=== PATIENT | female | born 1990 | race Caucasian/White ===

== ENCOUNTER → 2019-10-06 11:01 | Outpatient (CLI) | payer OTHER, SELFPAY ==
[2019-10-06 11:13] LABS: Bacteria Urine None Seen; RBC Urine None Seen (0-5/HPF); WBC Urine None Seen (0-5/HPF)
[2019-10-06 12:06] LABS: Appearance Urine UA CLEAR; Bilirubin Urine UA NEGATIVE (NEGATIVE); Color Urine UA YELLOW; Glucose Urine UA NEGATIVE (Negative); Ketones Urine UA TRACE (NEGATIVE); Leukocyte Esterase Urine UA NEGATIVE (NEGATIVE); Nitrite Urine UA NEGATIVE (Negative); Occult Blood Urine UA NEGATIVE (Negative); Protein Urine UA NEGATIVE (Negative); Urobilinogen Urine UA 0.2 E.U./dL (0.2)
[2019-10-06 12:09] LABS: Culture Indicated Urine Cult Not Indicated; Urine Comments Microscopic Normal
== END ==
PROVIDERS: Family Provider Specialist; PCP Family Medicine; Referring Provider Specialist; Visit Provider Specialist
DX: O26.859 Spotting complicating pregnancy, unspecified trimester (principal)
CPT/HCPCS: 36415; 81001; 84702

== ENCOUNTER → 2019-10-30 16:21 | Outpatient (CLI) | payer OTHER, SELFPAY ==
[2019-10-30 18:12] LABS: Appearance Urine UA CLEAR; Bilirubin Urine UA NEGATIVE (NEGATIVE); Color Urine UA YELLOW; Glucose Urine UA NEGATIVE (Negative); Ketones Urine UA NEGATIVE (NEGATIVE); Leukocyte Esterase Urine UA NEGATIVE (NEGATIVE); Nitrite Urine UA NEGATIVE (Negative); Occult Blood Urine UA NEGATIVE (Negative); Protein Urine UA NEGATIVE (Negative); Urobilinogen Urine UA 0.2 E.U./dL (0.2)
[2019-10-30 18:17] LABS: pH Urine UA 5.5 (4.5-8.0)
[2019-10-30 18:19] LABS: Add Manual Diff / Slide Review NO; Basophils Absolute Auto 100 /uL (0-100); Basophils Percent Auto 0.6 % (0-2); Eosinophils Absolute Auto 100 /uL (0-450); Eosinophils Percent Auto 1.7 % (2-4); Hemoglobin 13.5 g/dL (12.0-16.0); Lymphocytes Absolute Auto 2100 /uL (1100-4500); Lymphocytes Percent Auto 23.9 % (25-40); Mean Corpuscular HGB Conc 34.6 % (30-36); Mean Corpuscular Hemoglobin 31.5 PG (26-34); Mean Corpuscular Volume 91.2 fL (80-100); Monocytes Absolute Auto 500 /uL (0-900); Monocytes Percent Auto 5.4 % (3-14); Neutrophils Absolute Auto 5900 /uL (1500-7000); Neutrophils Percent Auto 68.4 % (50-75); Platelet Count 221 X10^3/uL (150-400); Red Blood Cell Count 4.27 X10^6/uL (4.0-5.2); Red Cell Distribution Width 12.3 % (11.6-14.8); White Blood Cell Count 8.7 X10^3/uL (4.5-11.0)
[2019-10-30 19:55] LABS: Hepatitis B Surface Antigen NEGATIVE s/c (NEGATIVE)
[2019-10-30 19:56] LABS: Rubella Antibody IgG 18.1 IU/mL (>15)
[2019-10-30 20:10] LABS: HIV 1 & 2 Ab/Ag 4th Gen Combo NEGATIVE (NEGATIVE); Hep C Virus Ab w/Reflex Quant NEGATIVE s/c (NEGATIVE)
[2019-10-30 22:04] LABS: Urine N gonorrhoeae NOT DETECTED
[2019-10-30 22:22] LABS: Urine Chlamydia NOT DETECTED
[2019-11-01 04:12] LABS: RPR Screen Non Reactive (Non Reactive)
[2019-11-01 07:09] LABS: Varicella IgG Antibody 2379 index (Immune >165)
== END ==
PROVIDERS: Family Provider Specialist; PCP Family Medicine; Referring Provider Specialist; Visit Provider Specialist
DX: Z34.81 Encounter for supervision of other normal pregnancy, first trimester (principal); Z3A.01 Less than 8 weeks gestation of pregnancy
CPT/HCPCS: 36415; 80055; 81003; 86787; 86803; 86850; 86900; 86901; 87086; 87389; 87491; 87591

== ENCOUNTER → 2019-11-21 08:35 | Outpatient (CLI) | payer OTHER, SELFPAY ==
[2019-11-22 23:06] LABS: COVID19 Sendout Not Detected (Not Detected)
== END ==
PROVIDERS: Family Provider Specialist; PCP Family Medicine; Visit Provider Physician Assistant
DX: Z11.59 Encounter for screening for other viral diseases (principal)
CPT/HCPCS: 87635

== ENCOUNTER → 2020-01-12 10:21 | Outpatient (CLI) | payer OTHER, SELFPAY ==
[2020-01-15 20:09] LABS: AFP, Serum 42.2 ng/mL (.); Estriol, Free 1.43 ng/mL (.); Inhibin A, Dimeric 89.25 pg/mL (.); Inhibin A, MoM 0.67 (.); Maternal Ethnicity Caucasian (.); Maternal Weight 217 lbs (.); Number of Fetuses No (.); OSBR Risk 1 IN 7137 (.); Results Report (.); Test Results *Screen Negative* (.); hCG, MoM 0.81 (.); hCG, Serum 17564 mIU/mL (.)
== END ==
PROVIDERS: Family Provider Specialist; PCP Family Medicine; Referring Provider Specialist; Visit Provider Specialist
DX: Z34.82 Encounter for supervision of other normal pregnancy, second trimester (principal); Z3A.18 18 weeks gestation of pregnancy
CPT/HCPCS: 36415; 82105; 82677; 84702; 86336

== ENCOUNTER → 2020-01-26 07:30 | Outpatient (CLI) | payer OTHER, SELFPAY ==
--- NOTE | 2020-01-26 07:31 | DI.US.S_ITS ---
PROCEDURE: US OB >= 14 WEEKS FETUS INDICATIONS: ANATOMY OUTSIDE/PRIOR DATING DATA: Last menstrual period (LMP): 09/06/2019. LMP-based estimated date of delivery (KALIE): 06/12/2020. First dating scan (date and location): 10/30/2019. Estimated date of delivery (KALIE) from first dating scan: 06/10/2020. TECHNIQUE: Real-time scanning was performed of the fetus, with image documentation and biometric measurements. Endovaginal scanning: Not performed. COMPARISON: [facility], , OB >= 14 WEEKS FETUS, 01/12/2020, 10:07. FINDINGS: General: A single living intrauterine gestation is present. Presentation: Breech. Placenta: Placental position is posterior, without previa. Amniotic fluid index: 15.1 cm, normal range is 5-24 cm. heart rate: 147 beats per minute. Maternal cervical canal: 3 cm long. Normal lower limit is 2.5 cm. biometrics: Biparietal diameter: 4.9 cm, 20 weeks 6 days Head circumference: 18.7 cm, 21 weeks 0 days Abdominal circumference: 15.5 cm, 20 weeks 4 days Femur length: 3.4 cm, 20 weeks 4 days Estimated gestational age from initial scan: 20 weeks 4 days Composite gestational age from present scan: 20 weeks 5 days Estimated weight and percentile: 369 g, 50 percentile Measurement variability for biometric dating: +/- 7 days from 14 weeks to 15 weeks 6 days gestation, +/- 10 days from 16 weeks to 21 weeks 6 days gestation, +/- 2 weeks from 22 weeks to 27 weeks 6 days gestation, +/- 3 weeks for 28 weeks gestation or later. weight reference: 4500 g or EFW >90/95% is considered macrosomia or large for gestational age. EFW <10% is small for gestational age. EFW 5% or less is considered intra-uterine growth restriction. Anatomic survey: Neuro: Ventricles are non-dilated at less than 10 mm. Cisterna magna is normal at 3-11 mm. Cerebellum is normal in size and morphology. Nuchal skin fold: Normal at less than 6 mm between 14-21 weeks gestational age. Face: Nose and lips, facial profile are normal. Spine: No evidence for spina bifida. Heart: 4-chambered heart is present, with normal ventricular outflow tracts. Diaphragm: Diaphragm is intact. Stomach: Left-sided stomach is present. Kidneys: No hydronephrosis. Normal is less than 5 mm in 2nd trimester, less than 7 mm in 3rd trimester. Cord: 3-vessel cord has orthotopic insertion. Bladder: Normal in size. Extremities: All 4 extremities identified. IMPRESSION: 1. [place] living intrauterine at 20 weeks 5 days based on today's ultrasound. This is concordant with the prior ultrasound dating. There is expected interval growth. 2. Normal placenta and amniotic fluid. 3. Normal and complete anatomic survey. Dictated by: Miller Jin M.D. on 01/26/2020 at 9:13 Approved by: Miller Jin M.D. on 01/26/2020 at 9:17
== END ==
PROVIDERS: Family Provider Specialist; PCP Family Medicine; Referring Provider Family Medicine; Visit Provider Specialist
DX: Z34.82 Encounter for supervision of other normal pregnancy, second trimester (principal); Z3A.20 20 weeks gestation of pregnancy
CPT/HCPCS: 76811

== ENCOUNTER 2020-03-01 17:08 | Outpatient (CLI) | payer OTHER, SELFPAY ==
--- NOTE | 2020-03-01 17:45 | P.TNLD_ITS ---
Visit Information Visit Information Date of evaluation: 03/01/20 Primary OB Provider: Terese Joseph Reason for Evaluation: Yes rupture of membranes [facility] Medical History (Updated 03/01/20 @ 17:48 by Terese Joseph MD) ASCUS (atypical squamous cells of undetermined significance) on gynecologic Papanicolaou smear complicating , antepartum (~01/27/19) Fx wrist bleeding (~02/16/17) Rubella non-immune status, antepartum (~2016) UTI (urinary tract infection) Surgical History (Updated 10/28/19 @ 13:34 by Tia Miller, RN) History of open reduction and internal fixation (ORIF) procedure Status post delivery (02/16/17) [place] teeth extracted Family History (Updated 10/28/19 @ 13:05 by Tia Miller, RN) Mother Thyroid condition Hypothyroid Father No problems noted. 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: employed current occupational exposures/hazards: No 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 special rosanne needs: No Smoking Status: Former smoker (Social/Occasional in College) Tobacco: How many years used: 4 second hand exposure: No alcohol intake: former (pre- : occasional on weekends ) substance use type: does not use Evaluation Evaluation Baseline heart rate: 150 Variability: Moderate (11-25) monitor accelerations: Present monitor decelerations: Absent Contraction Frequency (minutes): 0 Category of Tracing: Reactive Non-invasive Membranes Rupture Test: negative Diagnosis, Plan/Disposition Final Diagnosis (1) Vaginal discharge during in second trimester: Status: Acute Plan/Disposition Plan: negative test for rupture of membranes. reassurance. precautions reviewed OB Disposition: home
== END 2020-03-01 17:50 | disposition home or self-care (01) ==
LOC: LABOR 17:12 → OB 03-02 09:38
PROVIDERS: Family Provider Specialist; PCP Family Medicine; Referring Provider Specialist; Visit Provider Specialist
DX: O26.892 Other specified pregnancy related conditions, second trimester (principal); N89.8 Other specified noninflammatory disorders of vagina; W18.30XA Fall on same level, unspecified, initial encounter; Z3A.25 25 weeks gestation of pregnancy
CPT/HCPCS: 59025; 84112; G0378; G0379

== ENCOUNTER → 2020-03-05 09:13 | Outpatient (CLI) | payer OTHER, SELFPAY ==
[2020-03-05 11:16] LABS: Hematocrit 35.5 % (36-46); Hemoglobin 12.5 g/dL (12.0-16.0)
[2020-03-05 11:30] LABS: GTT (PREG) 1 Hour PP 50gm Dose 99 mg/dL (76-139)
== END ==
PROVIDERS: Family Provider Specialist; PCP Family Medicine; Referring Provider Specialist; Visit Provider Specialist
DX: Z34.82 Encounter for supervision of other normal pregnancy, second trimester (principal); Z3A.22 22 weeks gestation of pregnancy
CPT/HCPCS: 36415; 82950; 85014; 85018

== ENCOUNTER 2020-05-13 16:13 | Outpatient (CLI) | payer OTHER, SELFPAY ==
--- NOTE | 2020-05-13 17:19 | PM.OBTRLD ---
Visit Information Visit Information Date of evaluation: 05/13/20 Primary OB Provider: Terese Joseph On-call OB Provider: Nimo Ritter Reason for Evaluation: Yes non-stress test non-stress test reason: hypertension/pre-eclampsia Comments/Additional reasons for admission: Patient was sent by OB office after she called with elevated blood pressures at home and the sensation that her heart was racing. Denies contractions, leaking or bleeding and reports good FM. Denies lightheadedness, dizziness, chest pain, SOB, VIEIRA, vision changes, RUQ abdominal pain or edema. Vital Signs Vital Signs: T 36.2 BP 122/80 P 123 BP 123/78 P 112 Pulse came down to high 90s while talking with patient. REPLACED BY [facility] Medical History (Updated 05/13/20 @ 17:54 by Nimo Ritter DO) ASCUS (atypical squamous cells of undetermined significance) on gynecologic Papanicolaou smear complicating , antepartum (~01/27/19) Fx wrist bleeding (~02/16/17) Rubella non-immune status, antepartum (~2016) UTI (urinary tract infection) Surgical History (Updated 10/28/19 @ 13:34 by Tia Miller, RN) History of open reduction and internal fixation (ORIF) procedure Status post delivery (02/16/17) [place] teeth extracted Family History (Updated 10/28/19 @ 13:05 by Tia Miller, RN) Mother Thyroid condition Hypothyroid Father No problems noted. Grandfather Heart disease Arrhythmia Pacemaker Grandmother Heart disease Anemia Cancer Colon cancer DVT (deep vein thrombosis) in COPD (chronic obstructive pulmonary disease) Congestive heart failure Grandfather Myocardial infarct S/P coronary artery stent placement Grandmother COPD (chronic obstructive pulmonary disease) Heavy smoker Sister No known health problems Social History marital status: number of children: 1 household members: spouse, family and children lives independently: Yes pets and animals: Yes (X 2 dogs; X 3 cats and 15 ducks : aware) education level: college occupational status: employed current occupational exposures/hazards: No 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 Blood pressure was normal x2 in the center. NST reactive. No contractions noted on monitor. Heart rate was anywhere from the high 90s up to the 120s and would decrease spontaneously. Patient denied shortness of breath, lightheadedness, dizziness or chest pain associated with palpitations. Advised patient to increase her fluids and call or return to the center should she note any new symptoms associated with brief episodes of tachycardia. Patient is safe for discharge home with follow-up in the office as scheduled. OB Disposition: home
== END 2020-05-13 18:00 | disposition home or self-care (01) ==
LOC: OB 05-14 09:24
PROVIDERS: Family Provider Specialist; PCP Specialist; Referring Provider Specialist; Visit Provider Specialist
DX: O26.893 Other specified pregnancy related conditions, third trimester (principal); R00.2 Palpitations; Z3A.35 35 weeks gestation of pregnancy; R00.0 Tachycardia, unspecified
CPT/HCPCS: 59025; 59050; G0378; G0379

== ENCOUNTER → 2020-05-19 09:00 | Outpatient (CLI) | payer OTHER, SELFPAY ==
[2020-05-20 13:01] LABS: Strep Grp B PCR NEG for Grp B Strep
== END ==
PROVIDERS: Family Provider Specialist; PCP Specialist; Visit Provider Specialist
DX: Z34.83 Encounter for supervision of other normal pregnancy, third trimester (principal); Z3A.36 36 weeks gestation of pregnancy
CPT/HCPCS: 87653

== ENCOUNTER 2020-06-08 05:53 | Inpatient (IN) | payer OTHER, SELFPAY ==
[2020-06-08] VITALS (9 sets, daily range): BP systolic 101–128; BP diastolic 41–81; PULSE 71–87; RESP 10–17; TEMP 36.1–36.7; O2SAT 97–99
--- NOTE | 2020-06-08 07:05 | PM.OBHP.1 ---
OB HPI Date/Time Date of admission: 06/08/20 Date Patient Seen: 06/08/20 Time Patient Seen: 07:06 History of Present Condition Chief complaint: INPT : 2 Para: 1 Estimated Date of Delivery: 06/12/20 Estimated Gestational Age (weeks): 39 Narrative: Amanda Pollock is a 29 year old female Indications Operative indications ( section): previous uterine surgery History of Present care: good care, initiated at week # (7), number of visits (11) and pounds weight gain (47) Dating criteria: LMP confirmed by 1st trimester US Ultrasounds: normal mid trimester US Obstetrical complications: none Medical complications: none Preadmission Labs Blood type: A (+) positive -: Antibody screen: negative, GBS status: negative, HBsAG: negative, HIV: negative and RPR/VDLR: negative -: Chlamydia screen: not detected and Gonorrhea screen: not detected -: Rubella: immune and Varicella: immune HCAB: negative Quad screen: Normal 1 hr GTT: 99 Prior (ies) History: 02/16/2017 39 week gestation 9 lb 8 oz male section Evaluation Evaluation Baseline heart rate: 140 Variability: Moderate (11-25) monitor accelerations: Present monitor decelerations: Absent Uterine Contraction Intensity: Mild Category of Tracing: Reactive Status: Category l PFSH Medical History (Updated 05/26/20 @ 08:35 by Terese Joseph MD) ASCUS (atypical squamous cells of undetermined significance) on gynecologic Papanicolaou smear complicating , antepartum (~01/27/19) Fx wrist bleeding (~02/16/17) Rubella non-immune status, antepartum (~2016) UTI (urinary tract infection) Surgical History (Updated 10/28/19 @ 13:34 by Tia Miller RN) History of open reduction and internal fixation (ORIF) procedure Status post delivery (02/16/17) [place] teeth extracted Family History (Updated 10/28/19 @ 13:05 by Tia Miller, RYAN) Mother Thyroid condition Hypothyroid Father No problems noted. Grandfather Heart disease Arrhythmia Pacemaker Grandmother Heart disease Anemia Cancer Colon cancer DVT (deep vein thrombosis) in COPD (chronic obstructive pulmonary disease) Congestive heart failure Grandfather Myocardial infarct S/P coronary artery stent placement Grandmother COPD (chronic obstructive pulmonary disease) Heavy smoker Sister No known health problems Social History marital status: number of children: 1 household members: spouse, family and children lives independently: Yes pets and animals: Yes (X 2 dogs; X 3 cats and 15 ducks : aware) education level: college occupational status: employed current occupational exposures/hazards: No 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 special 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 needs: No Smoking Status: Never smoker Tobacco: How many years used: 4 second hand exposure: No alcohol intake: former substance use type: does not use Meds Home Medications and Allergies Home Medications Medication Instructions Recorded Confirmed Type fluticasone propionate 50 1 spray NASAL DAILY 10/28/19 06/08/20 History mcg/actuation nasal spray,suspension prenat.vits,nicolas,[id number] 1 tab PO DAILY 10/28/19 06/08/20 History Allergies Allergy/AdvReac Type Severity Reaction Status Date / Time Latex, Natural Rubber Allergy Intermediate Powder to Verified 06/02/20 08:11 Latex : Hives and Rash oxycodone [OXYCODONE] Allergy Intermediate Rash and Verified 06/02/20 08:11 Hives Review of Systems Review of Systems Narrative: Patient denies headaches, scotomata, epigastric pain. Good movement. No leakage of fluids. No contractions. ROS: Yes All systems reviewed with the patient and are negative except as otherwise documented Exam Vital Signs (past 8 hours): Blood pressure 128/81, pulse of 80, temperature 97.1?- 06/08/20 06:27 Blood Pressure 128/81 Narrative Exam Narrative: HEENT exam within normal limits. Lungs are clear to auscultation percussion. Heart is regular rate and rhythm no S3-S4 or murmurs. Abdomen is gravid and nontender. Fetus is vertex. Extremities without edema and nontender. Assessment and Plan Assessment and Plan Assessment and Plan narrative: 39 week gestation with prior section for repeat
--- NOTE | 2020-06-08 07:13 | PM.PREOP ---
Pre-operative Note COVID-19 COVID-19 status: Result pending Interval Note History & Physical reviewed/Exam performed by Physician: Yes Changes to H&P: No
[2020-06-08 07:17] LABS: COVID19 - ADMIT (NP swab/PCR) Negative (Negative)
[2020-06-08 07:21] LABS: Add Manual Diff / Slide Review NO; Basophils Absolute Auto 100 /uL (0-100); Basophils Percent Auto 0.7 % (0-2); Eosinophils Absolute Auto 100 /uL (0-450); Hematocrit 35.2 % (36-46); Hemoglobin 12.2 g/dL (12.0-16.0); Lymphocytes Absolute Auto 2000 /uL (1100-4500); Lymphocytes Percent Auto 20.9 % (25-40); Mean Corpuscular HGB Conc 34.5 % (30-36); Mean Corpuscular Hemoglobin 30.9 PG (26-34); Mean Corpuscular Volume 89.5 fL (80-100); Monocytes Absolute Auto 700 /uL (0-900); Monocytes Percent Auto 6.9 % (3-14); Neutrophils Absolute Auto 6700 /uL (1500-7000); Neutrophils Percent Auto 70.5 % (50-75); Platelet Count 231 X10^3/uL (150-400); Red Blood Cell Count 3.93 X10^6/uL (4.0-5.2); Red Cell Distribution Width 13.3 % (11.6-14.8); White Blood Cell Count 9.5 X10^3/uL (4.5-11.0)
[2020-06-08] MEDS: CEFAZOLIN 2 GM/100 ML FROZ.PIGGY IV (07:43)
--- NOTE | 2020-06-08 08:17 | RT ---
I assisted Nurse Beatriz during assessment of just after . Baby girl Maris did not need any intervention by me.
[2020-06-08] MEDS: CARBOPROST 250 MCG/ML AMPUL IM (08:19)
--- NOTE | 2020-06-08 08:20 | SUR.OPER ---
Supine on Padded OR bed, head on pillow, safety belt at thigh, arms secured on padded arm boards at <90 degrees abduction. Bump under right buttock. Legs uncrossed with pillow under knees, gel pad to heels, tape over blanket to lower legs.
--- NOTE | 2020-06-08 08:25 | SUR.OPER ---
Viable female delivered at 0806. Cord blood and placenta sent with L&D nurse.
--- NOTE | 2020-06-08 08:52 | PM.OBCS.1 ---
Operative Date/Time/Diagnoses Date of procedure: 06/08/20 Time of procedure: 08:52 Pre-op diagnosis: 39 week gestation with prior section for repeat section Post-op diagnosis: same Procedure & Clinicians Procedure: Repeat low-transverse section Same procedure as scheduled: Yes Indications: 39 week gestation with prior section Surgeon: Terese Joseph Gunner'S Mate G: Alma Flores Reason for Gunner'S Mate G: Assist with retraction, fundal pressure to deliver the fetus, cutting and suturing her side of the incision Anesthesia Type: Spinal Operative Notes Findings: Normal tubes, ovaries, uterus. Viable female weighing 9 lb 1 oz with Apgars of 8 and 9 Closure Type: primary Applied: Catheter (Celestin) Estimated Blood Loss (mL): 600 Blood products transfused: none Complications: none (Poor pain control with spinal) [place] Baby 1: Gender: Female Presentation: vertex Position: Right Occiput Transverse Placental Delivery Description: Expressed Cord Vessel Description: 3 Vessels score (1 min): 8 score (5 min): 9 weight: 9 lb 1 oz Narrative: The patient was brought to the operating room where she underwent a spinal for anesthesia. She was placed in a supine position with a left lateral tilt. A Celestin catheter was placed. Pulsatile stockings were placed and functional throughout the case. 2 g of Ancef were given IV prior to the incision. Warming was in place. The patient was prepped and draped in usual sterile fashion. A low transverse incision was made with a scalpel through the prior incision and the incision was carried down to the fascial layer which was incised transversely with scissors. The assistant refinery operator did her side of the incision. The midline attachments are superiorly and inferiorly. The rectus muscles were in the midline and the peritoneal incision was made with no damage to internal structures. The peritoneum was incised superiorly and inferiorly. The incision was stretched with the surgeon and assistant refinery operator placing traction. Bladder blade was placed and a bladder flap was developed and the bladder held away from the lower uterine segment. An incision was made in the uterus with the scalpel and the incision was extended with stretching. The head was elevated out of the abdomen and with fundal pressure by the assistant refinery operator the baby was delivered. The infant was bulb suctioned for clear fluid and handed off to the warmer. Cord blood was collected. The placenta delivered spontaneously with traction. The uterus was cleaned with clean laps. The uterine incision was closed in 2 layers of 0 chromic suture the first a running locking layer the second an imbricating layer. The assistant refinery operator was helping to expose the incision. The bladder peritoneum was repaired with 2-0 Vicryl suture. Due to some increased bleeding and history of hemorrhage patient was given Methergine as well as Pitocin followed by injection in the uterine muscle of Hemabate. The gutters were cleaned of any remaining fluids and ovaries and tubes were observed to be normal. Adequate hemostasis was noted. The perineum was closed with 2-0 Vicryl suture. The fascia layer was closed with 0 Vicryl suture with 2 stitches. The assistant refinery operator repairing half the incision with helping to retract and expose the incision for the other half. The incision was irrigated and adequate hemostasis noted. The incision was closed with interrupted 3-0 Vicryl sutures and then a subcuticular stitch of 4-0 Vicryl suture. Steri-Strips were placed. The uterus was massaged to remove any clots. The patient went to recovery room in good condition. Counts of instruments and sponges were correct. Dr. Flores was present throughout the case to assist with retraction, fundal pressure to deliver the infant, and suturing half the fascia. Although the spinal seem to be effective at the start of the case. The patient complained of tremendous amount of pressure initially through the 1st part of the delivery followed by complaints of pain with repair. Post-operative Condition: stable Disposition: other ( Center) Aftercare: routine postop
[2020-06-08] MEDS: HYDROMORPHONE 2 MG INJ IV ×4 (09:01→09:27)
[2020-06-08] MEDS: ONDANSETRON 4 MG/2 ML INJ IV (09:01)
[2020-06-08] MEDS: HYDROMORPHONE 2 MG TABLET PO (09:13)
[2020-06-08] MEDS: LACTATED RINGERS 1,000 ML 100 ML IV (10:15)
[2020-06-08] MEDS: BUTORPHANOL 1 MG/ML VIAL 0.5 MG IV ×2 (11:40→16:41)
[2020-06-08] MEDS: KETOROLAC 30 MG/ML VIAL IV ×2 (14:20→20:32)
[2020-06-08] MEDS: ACETAMINOPHEN 325 MG TABLET 650 MG PO ×2 (16:42→22:43)
[2020-06-08] MEDS: HYDROMORPHONE 2 MG TABLET 4 MG PO (18:35)
[2020-06-09] MEDS: KETOROLAC 30 MG/ML VIAL IV (02:31)
[2020-06-09 03:05] VITALS: BP 112/71; PULSE 88; RESP 16; TEMP 36.7
[2020-06-09] MEDS: ACETAMINOPHEN 325 MG TABLET 650 MG PO ×4 (04:48→22:59)
[2020-06-09] MEDS: HYDROMORPHONE 2 MG TABLET 4 MG PO ×2 (06:18→13:11)
--- NOTE | 2020-06-09 06:50 | PM.OBPN.1 ---
Subjective - OB Subjective Patient comments: no complaints, tolerating diet and flatus present baby status: doing well and nursing well [place] feeding status: exclusively breast feeding Date Patient Seen: 06/09/20 Time Patient Seen: 06:51 Interval history: Patient is postoperative day 1 repeat low-transverse section. Patient is ambulatory. She just had her Celestin catheter removed. No nausea. Pain seems to be under control. Breast-feeding is going well Exam Vital Signs (past 8 hours): Blood pressure 116/61 pulse of 80, temperature 97.8? Oxygen Delivery Method Room Air Oxygen Flow Rate 0 Narrative Exam Narrative: Abdomen is soft, nontender. Uterus is firm, at U, appropriately tender. Dressing has some dry blood. Mild lochia. Extremities without edema and nontender. Patient is Rh positive, rubella immune, received Tdap in the 3rd trimester. Objective Labs Result Diagrams: 06/08/20 07:00 Labs: Laboratory Results - last 24 hr 06/08/20 06/08/20 06/08/20 06:00 07:00 07:00 WBC 9.5 RBC 3.93 L Hgb 12.2 Hct 35.2 L MCV 89.5 MCH 30.9 MCHC 34.5 RDW 13.3 Plt Count 231 Neut % (Auto) 70.5 Lymph % (Auto) 20.9 L [place] % (Auto) 6.9 Eos % (Auto) 1.0 L Baso % (Auto) 0.7 Neut # (Auto) 6700 Lymph # (Auto) 2000 [place] # (Auto) 700 Eos # (Auto) 100 Baso # (Auto) 100 SARS-CoV-2 (PCR) Negative Blood Type A Positive Antibody Screen Negative Assessment & Plan Assessment and Plan (1) Delivery by section using transverse incision of lower segment of uterus: Status: Acute Plan day: 1 plan OB: routine postop care Time Spent With Patient Time: Total time spent is greater than 50% in coordination of care (as documented) at patient's floor/unit and/or counseling patient: Time with patient: less than 15 minutes
[2020-06-09 06:52] LABS: Add Manual Diff / Slide Review NO; Basophils Absolute Auto 100 /uL (0-100); Basophils Percent Auto 0.5 % (0-2); Eosinophils Absolute Auto 100 /uL (0-450); Eosinophils Percent Auto 0.7 % (2-4); Hematocrit 28.6 % (36-46); Hemoglobin 10.1 g/dL (12.0-16.0); Lymphocytes Absolute Auto 1600 /uL (1100-4500); Lymphocytes Percent Auto 16.8 % (25-40); Mean Corpuscular HGB Conc 35.4 % (30-36); Mean Corpuscular Hemoglobin 31.4 PG (26-34); Mean Corpuscular Volume 88.9 fL (80-100); Monocytes Absolute Auto 800 /uL (0-900); Neutrophils Absolute Auto 7200 /uL (1500-7000); Platelet Count 170 X10^3/uL (150-400); Red Blood Cell Count 3.22 X10^6/uL (4.0-5.2); White Blood Cell Count 9.7 X10^3/uL (4.5-11.0)
[2020-06-09] MEDS: DOCUSATE 250 MG CAPSULE PO (10:36)
[2020-06-09] MEDS: IBUPROFEN 600 MG TABLET PO ×3 (10:36→22:59)
[2020-06-10] MEDS: HYDROMORPHONE 2 MG TABLET 4 MG PO ×2 (02:20→10:14)
[2020-06-10] MEDS: ACETAMINOPHEN 325 MG TABLET 650 MG PO ×2 (04:55→11:38)
[2020-06-10] MEDS: IBUPROFEN 600 MG TABLET PO ×2 (04:55→11:38)
[2020-06-10] MEDS: DOCUSATE 250 MG CAPSULE PO (07:59)
--- NOTE | 2020-06-10 08:04 | PM.OBDS.1 ---
Discharge Providers Provider Date of admission: 06/08/20 05:53 Discharge Date: 06/10/20 Primary care physician: Doctor Jonelle MD Consults: 06/08/20 09:04 Consult to General Manager Road Production Routine Comment: Discharge provider: Terese Joseph MD Summary Hospital Course Date Patient Seen: 06/10/20 Time Patient Seen: 08:04 Diagnoses: Repeat low-transverse section Hospital Course: Patient underwent a repeat low-transverse section on 06/08/2020. She is doing well. No headaches, scotomata, epigastric pain. She is passing gas. She is urinating well. She is able to ambulate. No nausea. Breast-feeding is going well. Peripartum Data Infant Delivery Method: Section (Repeat low-transverse) Procedures: Repeat low-transverse section complications: none [place] 1: Gender: Female Disposition of : home Discharge Diagnosis (1) Delivery by section using transverse incision of lower segment of uterus: Status: Acute Status at Discharge Cognitive/behavioral status at discharge: oriented Functional status at discharge: independent ambulation Overall status at discharge: patient is progressing back to baseline Time Spent with Patient Time attestation: Total time spent providing and/or coordinating discharge services: Time spent: Less than 30 minutes Objective Labs Result Diagrams: 06/09/20 06:35 Exam Vital Signs (past 8 hours): Blood pressure 123/69, pulse 81, temperature 98.2? Oxygen Delivery Method Room Air Oxygen Flow Rate 0 Narrative Exam Narrative: Abdomen is soft, nontender. Uterus is firm, U -1, appropriately tender. Dressing is clean, dry, intact. Extremities with trace edema and nontender. Patient is Rh positive, rubella immune, received Tdap in the 3rd trimester. Discharge Plan Discharge Plan Patient Disposition: Home Discharge orders & Medications Prescriptions: New hydromorphone 2 mg Tablet 4 mg PO Q4HR PRN (Reason: Pain, Severe (7-10)) Qty: 20 RF: 0 ibuprofen 600 mg Tablet 600 mg PO Q6HR PRN (Reason: Fever/Mild Pain (1-3)) Qty: 30 RF: 0 Continued prenat.vits,nicolas,[id number] Tablet 1 tab PO DAILY RF: 0 fluticasone propionate [Flonase Allergy Relief] 50 mcg/actuation spray,suspension 1 spray NASAL DAILY RF: 0 Follow up/Referrals: Terese Joseph MD [Family Provider] - 1 Week Doctor Sal MD [Primary Care Provider] - Diet/Activity/Treatments Diet: Regular Activity: Nothing in vagina or lifting over 20 lb for 6 weeks Skin/Wound/Dressing Care Report to your healthcare provider any signs of infection, such as:: chills, fever and increased pain Dressing: Leave dressing on until postop appointment Discharge Data Primary Care Provider: Doctor Jonelle
== END 2020-06-10 14:15 | disposition home or self-care (01) | DRG 788 ==
PROVIDERS: Admitting Provider Specialist; Family Provider Specialist; Referring Provider Specialist; Visit Provider Specialist
PROC: 10D00Z1 Extraction of Products of Conception, Low, Open Approach (ICD-10-PCS; CPT 59514; principal; 2020-06-08 07:45)
DX: O34.219 Maternal care for unspecified type scar from previous cesarean delivery (principal); Z3A.39 39 weeks gestation of pregnancy; Z37.0 Single live birth; Z20.822 Contact with and (suspected) exposure to COVID-19
CPT/HCPCS: 36415; 59050; 59510; 59514; 85025; 86850; 86900; 86901; 87635; J0595; J0690; J1170; J1885; J2274; J2405; J2590; J2765; J3010

== ENCOUNTER → 2022-04-11 09:16 | Outpatient (CLI) | payer OTHER, SELFPAY ==
[2022-04-11 09:38] LABS: Add Manual Diff / Slide Review NO; Basophils Absolute Auto 0 /uL (0-100); Basophils Percent Auto 0.7 % (0-2); Eosinophils Absolute Auto 100 /uL (0-450); Eosinophils Percent Auto 1.3 % (2-4); Hematocrit 41.2 % (36-46); Hemoglobin 14.3 g/dL (12.0-16.0); Lymphocytes Absolute Auto 1600 /uL (1100-4500); Lymphocytes Percent Auto 24.2 % (25-40); Mean Corpuscular HGB Conc 34.8 % (30-36); Mean Corpuscular Hemoglobin 30.7 PG (26-34); Mean Corpuscular Volume 88.3 fL (80-100); Monocytes Absolute Auto 300 /uL (0-900); Monocytes Percent Auto 5.2 % (3-14); Neutrophils Absolute Auto 4500 /uL (1500-7000); Neutrophils Percent Auto 68.6 % (50-75); Platelet Count 228 X10^3/uL (150-400); Red Blood Cell Count 4.67 X10^6/uL (4.0-5.2); Red Cell Distribution Width 12.9 % (11.6-14.8); White Blood Cell Count 6.6 X10^3/uL (4.5-11.0)
[2022-04-11 10:20] LABS: Alanine Aminotransferase 24 IU/L (<35); Albumin 4.7 g/dL (3.5-5.0); Albumin Globulin Ratio 1.4 (1.0-2.8); Alkaline Phosphatase 73 U/L (38-126); Aspartate Aminotransferase 20 IU/L (14-36); BUN Creatinine Ratio 29.4 (6-22); Bilirubin Total 0.7 mg/dL (0.2-1.3); Blood Urea Nitrogen 15 mg/dL (7-17); Calcium 9.3 mg/dL (8.4-10.2); Carbon Dioxide 23 mmol/L (22-32); Chloride 102 mmol/L (98-107); Cholesterol 161 mg/dL (140-199); Estimated Glomerular Filt Rate > 60 mL/min (>60); Globulin 3.3 g/dL (1.7-4.1); Glucose 99 mg/dL (70-100); HDL Cholesterol 54 mg/dL (40-60); HEMOLYSIS < 15 (0-50); LDL Cholesterol Calculated 84 mg/dL (<100); Potassium 4.3 mmol/L (3.4-5.1); Sodium 137 mmol/L (137-145); Triglycerides 114 mg/dL (35-150)
[2022-04-11 10:44] LABS: TSH w/ Reflex to FT4 0.65 uIU/mL (0.47-4.68)
== END ==
PROVIDERS: Family Provider Specialist; PCP Family Medicine; Referring Provider Family Medicine; Visit Provider Family Medicine
DX: E66.9 Obesity, unspecified (principal)
CPT/HCPCS: 36415; 80053; 80061; 84443; 85025

== ENCOUNTER 2024-01-21 01:36 | Emergency (ER) | payer OTHER, SELFPAY ==
[2024-01-21 01:52] VITALS: BP 141/87; PULSE 90; RESP 16; TEMP 37; O2SAT 98; BMI 36.5
--- NOTE | 2024-01-21 02:00 | PC.NURSE ---
Pt states that she also has TMJ and feels that if the pain does not get better that it may lock up. Left ear pain only.
--- NOTE | 2024-01-21 02:12 | ED.EAR ---
HPI - Ear Problem General Chief complaint: Ear Stated complaint: left ear pain Time Seen by Provider: 01/21/24 01:40 Source: patient Mode of arrival: Ambulatory History of Present Illness HPI Narrative: 33-year-old female with left ear pain since yesterday, no ear drainage, no local trauma or foreign body known. No recent cough or shortness of breath. No associated headache. Some anterior discomfort jaw/TMJ region, somewhat worse with open and closing jaw motion. No known dental caries or dental procedures. Related Data Home Medications Medication Instructions Recorded Confirmed fluticasone propionate 50 1 spray intranasal DAILY 10/28/19 03/05/23 mcg/actuation nasal spray,suspension (Flonase Allergy Relief) Previous Rx's Medication Instructions Recorded amoxicillin 875 mg tablet 875 mg PO BID 10 days #20 tabs 01/21/24 Allergies Allergy/AdvReac Type Severity Reaction Status Date / Time Latex, Natural Rubber Allergy Intermediate Powder to Verified 03/05/23 18:43 Latex : Hives and Rash oxycodone [OXYCODONE] Allergy Intermediate Rash and Verified 03/05/23 18:43 Hives Review of Systems Review of Systems Narrative: See HPI Patient History Medical History (Updated 01/21/24 @ 02:29 by Josias Correa MD) Bruxism (teeth grinding) Morbid obesity with BMI of 40.0-44.9, adult Delivery by section using transverse incision of lower segment of uterus (~06/08/20) ASCUS (atypical squamous cells of undetermined significance) on gynecologic Papanicolaou smear complicating , antepartum (~01/27/19) Fx wrist UTI (urinary tract infection) Rubella non-immune status, antepartum (~2016) bleeding (~02/16/17) Surgical History History of open reduction and internal fixation (ORIF) procedure [place] teeth extracted Status post delivery (02/16/17) Family History Mother Thyroid condition Hypothyroid Father No problems noted. Grandfather Heart disease Arrhythmia Pacemaker Grandmother Heart disease Anemia Cancer Colon cancer DVT (deep vein thrombosis) in COPD (chronic obstructive pulmonary disease) Congestive heart failure Grandfather Myocardial infarct S/P coronary artery stent placement Grandmother COPD (chronic obstructive pulmonary disease) Heavy smoker Sister No known health problems Social History marital status: number of children: 1 household members: spouse, family and children lives independently: Yes pets and animals: Yes (X 2 dogs; X 3 cats and 15 ducks : aware) education level: college occupational status: employed current occupational exposures/hazards: No 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 HEAD: Atraumatic. Normocephalic. EYES: Pupils equal round and reactive. Extraocular motions intact. No scleral icterus. No injection or drainage. ENT: Nose without bleeding, purulent drainage. Throat without erythema, tonsillar hypertrophy or exudate. Airway patent. No TMJ site tenderness. No preauricular node palpable. Left TM with deep pink color and bulging loss of landmarks noted. No fluid or other foreign material in EAC. Left EAC not particularly narrowed. No pinnae lesions left side noted. No tenderness or mass posterior auricular along the mastoid. NECK: Trachea midline. Non tender CARDIOVASCULAR: Regular rate and rhythm without murmurs, gallops, or rubs. RESPIRATORY: Clear to auscultation. Breath sounds equal bilaterally. No wheezes, rales, or rhonchi. GASTROINTESTINAL: Abdomen soft, non-tender, nondistended. EXTREMITIES: No edema or joint tenderness. BACK: Nontender without deformity or crepitance. No flank tenderness. NEURO: AOx3. Motor functions grossly nonfocal SKIN: No rash or erythema of visible areas Initial Vital Signs Initial Vital Signs: Vital Signs Temperature 98.6 F 01/21/24 01:52 Pulse Rate 90 01/21/24 01:52 Respiratory Rate 16 01/21/24 01:52 Blood Pressure 141/87 H 01/21/24 01:52 Pulse Oximetry 98 01/21/24 01:52 Oxygen Delivery Method Room Air 01/21/24 01:52 Course Orders Ordered: Discontinued Medications Amoxicillin (Amoxicillin 250 Mg Capsule) 1,000 mg PO NOW ONE Stop: 01/21/24 02:30 Last Admin: 01/21/24 02:38 Dose: 1,000 mg Documented By: AB Vital Signs Vital signs: Vital Signs - 8 hr 01/21/24 01:52 Temperature 98.6 F Pulse Rate 90 Respiratory Rate 16 Blood Pressure 141/87 H Pulse Oximetry 98 Oxygen Delivery Method Room Air Medical Decision Making MDM Narrative Medical decision making narrative: Left ear pain, exam consistent with acute suppurative otitis media, doubt mastoiditis, no pre-auricular or postauricular nodes noted. Pinnae unremarkable. First dose oral amoxicillin given, prescription sent for further course to her pharmacy. She declined opiate pain medications when offered. Advised to continue Tylenol and or Motrin as needed for pain control. Advised to follow up with your regular provider if not improving in the next few days. Return precautions for worsening also discussed. Discharge Plan Departure Patient Disposition: Home Clinical Impression: Acute left otitis media Activity Restrictions/Additional Instructions: Left your pain, no canal manipulation or direct trauma, no drainage. On examination the left eardrum is deep pink and bulging, consistent on examination with a middle ear infection. Amoxicillin 1st dose antibiotic given in the emergency department, prescription for further course of antibiotic sent to your pharmacy. Take Tylenol and or Motrin as needed for discomfort. Recheck with your regular doctor if not improving in the next few days. Return to this/nearest emergency department for any change worsening symptoms or any concerns prior Prescriptions: New amoxicillin 875 mg tablet 875 mg PO BID 10 Days Qty: 20 0RF No Action fluticasone propionate [Flonase Allergy Relief] 50 mcg/actuation spray,suspension 1 spray NASAL DAILY Rx Instructions: administer into each nostril Referrals: Krish Ragland MD [Primary Care Provider] - Stand Alone Forms: Patient Portal/API/Survey
[2024-01-21] MEDS: AMOXICILLIN 250 MG CAPSULE 1000 MG PO (02:38)
== END 2024-01-21 02:39 | disposition home or self-care (01) ==
PROVIDERS: Emergency Provider Emergency Medicine; Family Provider Specialist; PCP Family Medicine
DX: H66.92 Otitis media, unspecified, left ear (principal)
CPT/HCPCS: 99283

== ENCOUNTER 2025-02-14 01:05 | Emergency (ER) | payer OTHER, SELFPAY ==
[2025-02-14 01:09] VITALS: BP 134/94; PULSE 109; RESP 16; TEMP 37.1; O2SAT 99; BMI 36.5
[2025-02-14] MEDS: LIDOCAINE 5% PATCH 1 EACH TOP (01:45)
--- NOTE | 2025-02-14 02:07 | ED_ITS ---
HPI - Back Pain/Injury General Chief Complaint: Back Pain/Injury Stated Complaint: back pain/injury Time Seen by Provider: 02/14/25 01:18 Source: patient History of Present Illness HPI Narrative: Patient is a 34-year-old female who presents with acute back pain. No significant past medical history. Patient developed acute back pain around 1pm while she was pulling the dish out of the oven and and turned. She reports lower thoracic/upper lumbar sharp 10/10 pain which she has been alternating Motrin and Tylenol for (brings her pain down to a 7/10). She is presenting to the ER this evening to ensure that she does not have any concerning signs or symptoms. Denies any red flags: no fevers, no saddle anesthesia, no bowel/bladder incontinence, no recent spinal surgeries or instrumentations. Denies any trauma. Related Data Previous Rx's ?Medication ?Instructions ?Recorded lidocaine 5 % patch and lidocaine 1 ea topical .qd #12 ea 02/14/25 2.5 %-prilocaine 2.5 % topical cream Allergies Allergy/AdvReac Type Severity Reaction Status Date / Time Latex, Natural Rubber Allergy Intermediate Powder to Verified 02/14/25 01:08 Latex : Hives and Rash oxycodone (OXYCODONE) Allergy Intermediate Rash and Verified 02/14/25 01:08 Hives Review of Systems Review of Systems Narrative: Pertinent positives and negatives per HPI. Patient History Medical History (Updated 02/14/25 @ 01:42 by Ruthie Black MD) Bruxism (teeth grinding) Morbid obesity with BMI of 40.0-44.9, adult Delivery by section using transverse incision of lower segment of uterus (~06/08/20) ASCUS (atypical squamous cells of undetermined significance) on gynecologic Papanicolaou smear complicating , antepartum (~01/27/19) Fx wrist UTI (urinary tract infection) Rubella non-immune status, antepartum (~2016) bleeding (~02/16/17) Surgical History History of open reduction and internal fixation (ORIF) procedure [place] teeth extracted Status post delivery (02/16/17) Family History Mother Thyroid condition Hypothyroid Father No problems noted. Grandfather Heart disease Arrhythmia Pacemaker Grandmother Heart disease Anemia Cancer Colon cancer DVT (deep vein thrombosis) in COPD (chronic obstructive pulmonary disease) Congestive heart failure Grandfather Myocardial infarct S/P coronary artery stent placement Grandmother COPD (chronic obstructive pulmonary disease) Heavy smoker Sister No known health problems Social History marital status: number of children: 1 household members: spouse, family and children lives independently: Yes pets and animals: Yes (X 2 dogs; X 3 cats and 15 ducks : aware) education level: college occupational status: employed current occupational exposures/hazards: No 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 Mildly tachycardic secondary to pain. Const Other: Well-developed, well-nourished, in acute distress. Resp Other: Normal work of breathing. Cardio Other: Regular rate. GI Other: Soft, nondistended, nontender to palpation. Back/Spine/Pelvis Other: No midline tenderness to palpation in C, T, L-spine. She does have some pain in the paraspinal lower thoracic and upper lumbar region. There is no muscle spasms noted. Straight leg test and opposite straight leg test was negative. Skin Other: No skin changes or rashes in her posterior chest wall. Neuro Other: Flexion, extension at hip, knee, ankle dorsiflexion and plantar flexion 5/5 bilaterally. 2+ patellar tendon reflexes bilaterally. Normal gait. Psych Other: Dressed appropriately. No x4. Mood, affect, attitude, thought process and content normal. Course Course Course Narrative: 0138 patient evaluated by provider. She states that she does not want narcotics or muscle relaxers. We will trial lidocaine patch. Orders Ordered: Discontinued Medications Lidocaine (Lidocaine 5% Patch) 1 each TOP NOW ONE Stop: 02/14/25 01:39 Last Admin: 02/14/25 01:45 Dose: 1 each Documented By: ZACARIAS Vital Signs Vital signs: Vital Signs - 8 hr 02/14/25 01:09 Temperature 98.8 F Pulse Rate 109 H Respiratory Rate 16 Blood Pressure 134/94 H Pulse Oximetry 99 Oxygen Delivery Method Room Air MDM - Back Pain/Injury MDM Narrative Medical decision making narrative: 34-year-old female who presents with acute onset of lower thoracic/upper lumbar back pain without any red flags. Differential Diagnosis: * Musculoskeletal strain/sprain (most likely given mechanism and presentation) * Intervertebral disc pathology (herniation, bulge) * Vertebral compression fracture (less likely without trauma or osteoporosis history) * Less likely: infection (discitis, osteomyelitis, epidural abscess) given absence of fever/systemic symptoms * Less likely: malignancy/metastatic disease given no history or systemic signs Plan: * Low suspicion for emergent pathology given absence of red flags. * Symptomatic management with analgesics, heat/ice, activity modification. * No immediate imaging or lab workup warranted unless symptoms persist or worsen. * Provide strict return precautions (new neurologic deficits, bowel/bladder changes, fever, worsening pain). * Discharge home with supportive care instructions and outpatient follow up if pain persists. Discharge Plan Departure Patient Disposition: Home Clinical Impression: Low back pain Instructions: DI for Muscle Strain Activity Restrictions/Additional Instructions: Activity as tolerated. 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 You were given lidocaine patch as well as prescription to fill. Given mechanism, imaging was not warranted during your evaluation today. Recommendations: - Youtube mid back and lower back stretches and yoga. Perform these movements as tolerated, and daily until your symptoms improve - Consider physical therapy, dry needling, massage, etc. - Continue alternating Tylenol and Motrin as needed for pain or discomfort. Return to the emergency department if you develop the following symptoms: - Severe back pain not alleviated with oral medications - Shanges in your symptoms to include fevers, chills, nausea, vomiting, bowel or bladder incontinence, weakness in your lower limbs, or any other concerning symptoms. Prescriptions: New lidocaine-prilocaine 5-2.5-2.5 % kit, patch, medicated, cream 1 ea topical .qd Qty: 12 [address]: [address] 1 patch on your mid to lower back for 12 hours. Remove for 12 hours. One patch allowed per 24 hours. Referrals: Krish Ragland MD [Primary Care Provider, Family Practice] Stand Alone Forms: Patient Portal/API
== END 2025-02-14 02:11 | disposition home or self-care (01) ==
PROVIDERS: Emergency Provider Student in an Organized Health Care Education/Training Program; PCP Family Medicine
DX: M54.50 Low back pain, unspecified (principal); M54.6 Pain in thoracic spine
CPT/HCPCS: 99282